=== PATIENT | female | born 1960 | race African-American/Black ===

== ENCOUNTER 2016-08-23 09:37 | Emergency (ER) | payer SELFPAY ==
[2016-08-23 11:01] VITALS: BP 151/88
[2016-08-23] MEDS ORDERED: Aspirin Low Dose CHEW TAB* 81 MG PO ONE (11:40)
[2016-08-23] MEDS ORDERED: Aspirin Low Dose CHEW TAB* 81 MG ONE (11:42)
--- NOTE | 2016-08-23 12:01 | UC ---
Brandy Farley Anna, scribed for Marlen Nixon MD on 08/23/16 at 1125 . Headache HPI - HPI Summary HPI Summary: Patient is a 55 y/o [place] [facility] [place] sudden onset of an excruciating left-sided KEEN that began yesterday morning at 6:00. Patient describes the worst of the pain as crushing with a severity of 10/10, but it is only somewhat present currently. Has has similar h/a x 2, early Jul; and again a couple weeks ago. She is concerned that there could be an underlying serious problem. + fam hx cva (father), mom + dm, htn. nonsmoker. 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 Since last night approx 21:30 sudden onset L ant chest pain, did not go away ( although a little better now), prompting her visit here today. No sob / palpitations. No n/v/d. Appetite decreased today, has not eaten. No recent illness. No rash. No b/b issues. Occas paresth / dysesth in BUE and BLE but not now. No vis / aud changes. Per scribe: At baseline, she experiences numbness in hands and feet. When she has a KEEN, her left ear hurts. She had some abd pain yesterday, which has since resolved. She is sometimes dizzy and unsteady but is not dizzy now. Denies fever, visual changes, smelling changes, rash, recent flu, n/v/d, hematuria, dysuria, or hematochezia. Nothing aggravates symptoms. She was able to work yesterday but not today. She has not been sick lately and is not aware of any blood clotting disorders. She is eating and drinking normally. She has experienced two headaches of this severity before, once three weeks ago, and once five weeks ago. She doesnt smoke. She drinks about one cup of coffee each day. Her family history is significant for CVA. She was tested for carbon monoxide poisoning last year because of exposure in her apartment. She lives in the same apartment building as then. - History Of Current Complaint Chief Complaint: UCHeadache Stated Complaint: LEFT SIDE HEADACHE Time Seen by Provider: 08/23/16 11:14 Hx Obtained From: Patient ?: No Onset/Duration: Sudden Onset, Lasting Days - Allergies/Home Medications Allergies/Adverse Reactions: Allergies Allergy/AdvReac Type Severity Reaction Status Date / Time No Known Allergies Allergy Verified 03/21/15 14:32 Home Medications: Home Medications NK [No Home Medications Reported] 08/23/16 [History Confirmed 08/23/16] PMH/Surg Hx/FS Hx/Imm Hx Previously Healthy: No - see hpi Endocrine History Of: Denies: Diabetes, Thyroid Disease Cardiovascular History Of: Denies: Cardiac Disorders, Hypertension, Congestive Heart Failure Respiratory History Of: Denies: COPD, Asthma GI/ History Of: Denies: Ulcer, Renal Disease - Surgical History Surgical History: Yes Surgery Procedure, Year, and Place: - Family History Known Family History: Positive: Hypertension - mother, Diabetes - mother, Other - Hx CVA in father - Social History Occupation: Employed Full-time Lives: With Family Alcohol Use: Occasionally Substance Use Type: None Smoking Status (MU): Never Smoked Tobacco Review of Systems Constitutional: Negative Skin: Negative Eyes: Negative, Other - see hpi Respiratory: Negative Cardiovascular: Chest Pain Gastrointestinal: Abdominal Pain Genitourinary: Negative Motor: Negative Neurovascular: Negative Musculoskeletal: Negative Neurological: Headache, Numbness, Other - Sometimes dizzy Psychological: Negative All Other Systems Reviewed And Are Negative: Yes Physical Exam Triage Information Reviewed: Yes Appearance: Well-Nourished, Other: - appropriately a little anxious and tearful Vital Signs: Initial Vital Signs Temp 98.4 F 08/23/16 10:56 Pulse 57 08/23/16 10:56 Resp 18 08/23/16 10:56 BP 151/88 08/23/16 10:56 Pulse Ox 100 08/23/16 10:56 Vital Signs Reviewed: Yes Eye Exam: Normal Eyes: Positive: Other: - perrla eomi sw, cp. fundi nondilated grossly benign. no appreciable nystagmus. ENT Exam: Normal Neck exam: Normal - No adenopathy appreciated Respiratory Exam: Normal Respiratory: Positive: Chest non-tender, Lungs clear, Normal breath sounds, No respiratory distress, No accessory muscle use Cardiovascular Exam: Normal Cardiovascular: Positive: RRR, No Murmur, Pulses Normal, Brisk Capillary Refill Abdominal Exam: Normal Abdomen Description: Positive: Nontender, No Organomegaly, Soft Bowel Sounds: Positive: Present Musculoskeletal Exam: Normal Musculoskeletal: Positive: Strength Intact Neurological Exam: Normal - CN 1 - 12 intact, incl + sens alcohol swab. DTR's 2 + equal P / BR / R Moves all ext's. Distal sens LT present x 4 ext's Denies B/ B issues. Gait steady. Psychological Exam: Normal - Conversing easily and appropriately Skin Exam: Normal - no visible or reported rash Diagnostics - EKG Cardiac Rate: Bradycardia - 11:01, Sinus, 54 bpm, no change from previous EKG . Headache Course/Dx - Course Course Of Treatment: No new problems reported in [facility]. Sudden onset L sided h/a since yesterday. L left ant chest pain since last night. Both better now, but still uncomfortable. Neurological examination here in [facility] w/o focal finding. Eyes nondilated fundi grossly ok. EKG sr at 54 bpm qtc 498, t wave nonspecific findings. C/w last ekg 06/15/15. I am unclear of etiology for constellation of syptoms. But c/n exclude cardiac or vascular event, matthew in light of new chest pain. She was tested for CO last year, with low level. Denies new or recent known exposure, left her appartment around 09:30 this morning. D/w pt. ED evaluation and treatment is recommended. She expresses understanding and agreement. Will go via EMS. At first reluctant to take asa, empty stomach, but will take with crackers prior to transfer. Questions answered to the best of my ability. - Differential Dx/Diagnosis Provider Diagnoses: Chest pain. Acute L side H/a. - Physician Notifications Discussed Patient Care With: Dr. Jamison Staton (ED Provider) at 11:45. Agrees to accept pt in the ED. Discharge - Discharge Plan Condition: Guarded Disposition: ADMITTED TO [facility] Referrals: Lukas Bradley MD [Primary Care Provider] - The documentation as recorded by the Brandy sadler Anna accurately reflects the service I personally performed and the decisions made by me, Marlen Nixon MD.
== END 2016-08-23 12:20 | disposition short-term general hospital (02) ==
LOC: UCEAST 09:37
DX: R51 Headache (principal); R07.89 Other chest pain; R00.1 Bradycardia, unspecified
CPT/HCPCS: 93005; 99214; A9270-GY; G0463

== ENCOUNTER 2016-08-23 12:41 | Emergency (ER) | payer SELFPAY ==
--- NOTE | 2016-08-23 13:29 | RAD ---
INDICATION: Headache COMPARISON: None. TECHNIQUE: Contiguous axial sections of the brain were obtained from the skull base to the vertex without contrast. FINDINGS: The ventricles, cisterns and sulci are within normal limits. The vazquez-white matter differentiation is adequately maintained and there is no sulcal effacement. No significant focal abnormality or mass effect is present. There is no evidence for intracranial hemorrhage. No significant focal osseous abnormality is present. The visualized portion of the paranasal sinuses and mastoid air cells appear clear. IMPRESSION: Normal CT of the brain.
[2016-08-23 13:50] LABS: Hematocrit 45 % (35-47); Hemoglobin 13.9 g/dl (12.0-16.0); Mean Corpuscular HGB Conc 31 g/dl (31-36); Mean Corpuscular Hemoglobin 26 pg (27-31); Mean Corpuscular Volume 83 fL (80-97); Mean Platelet Volume 9 um3 (7.4-10.4); Red Blood Count 5.41 10^6/ul (4.0-5.4); Red Cell Distribution Width 13 % (10.5-15); White Blood Count 5.4 10^3/ul (3.5-10.8)
[2016-08-23 13:53] LABS: Comments Flag Yes
[2016-08-23 14:02] LABS: BUN/Creatinine Ratio 20.3 (8-20); Calcium 9.5 mg/dL (8.6-10.3); EGFR African American 105.6 (>60); EGFR Non-African American 82.1 (>60); Total Bilirubin 0.6 mg/dL (0.2-1.0)
[2016-08-23 14:11] LABS: Urine Bilirubin Negative (Negative); Urine Glucose Negative (Negative); Urine Nitrite Negative (Negative)
[2016-08-23] MEDS ORDERED: Ketorolac INJ* 30 MG/ML 1 ML VIAL IV PUSH ONE (14:16)
--- NOTE | 2016-08-23 14:31 | ED ---
I, Oh,Soohyun, scribed for Boo Johnson MD on 08/23/16 at 1310 . Headache - HPI Summary HPI Summary: Limited HPI due to significant language. Pt is communicating freely in [place] with Dr. Johnson. Pt presents to ED for acute left-sided, 6/10 KEEN since yesterday. KEEN is intermittent and lasted about 2 hours yesterday before spontaneously resolving itself. KEEN came back this morning, and pt decided to visit ED. Pt denies any n/v , blurred vision, fever, or chills. Pt states that she has never had this pain before. She denies any PMHx. PSHx includes . She is nondrinker and nonsmoker. FHx is positive for MN and DM. - History Of Current Complaint Stated Complaint: CHEST PAIN Time Seen by Provider: 08/23/16 12:45 Hx Obtained From: Patient Hx Last Menstrual Period: last week Onset/Duration: Sudden Onset, Resolved Initially Headache Was: Moderate Currently Pain Is: Moderate Timing: Intermittent, Lasting:, Hours - 2 hours Character: Dull Location of Headache: Parietal - left Aggravating Factor: Nothing Allevating Factors: Other (Noted In Comments) - spontaneous resolution. Associated Signs And Symptoms: Negative - Allergies/Home Medications Allergies/Adverse Reactions: Allergies Allergy/AdvReac Type Severity Reaction Status Date / Time No Known Allergies Allergy Verified 03/21/15 14:32 PMH/Surg Hx/FS Hx/Imm Hx Endocrine/Hematology History: Reports: Hx Anemia Denies: Hx Diabetes, Hx Thyroid Disease Cardiovascular History: Denies: Hx Congestive Heart Failure, Hx Hypertension Respiratory History: Denies: Hx Asthma, Hx Chronic Obstructive Pulmonary Disease (COPD) GI History: Denies: Hx Ulcer History: Denies: Hx Renal Disease Musculoskeletal History: Denies: Hx Osteoporosis - Surgical History Surgery Procedure, Year, and Place: Hx Anesthesia Reactions: No Infectious Disease History: No Infectious Disease History: Denies: Hx Hepatitis, Hx Human Immunodeficiency Virus (HIV), History Other Infectious Disease, Traveled Outside the [place] in Last 30 Days - Family History Known Family History: Positive: Hypertension - mother, Diabetes - mother, Other - Hx CVA in father - Social History Alcohol Use: Occasionally Hx Substance Use: No Substance Use Type: Reports: None Hx Tobacco Use: No Smoking Status (MU): Never Smoked Tobacco Review of Systems Negative: Fever, Chills Negative: Vomiting, Nausea Positive: Headache - intermittent and left sided, lasting ~2 hours Negative: Anxious, Depressed All Other Systems Reviewed And Are Negative: Yes Physical Exam - Summary Physical Exam Summary: VITAL SIGNS: Reviewed. GENERAL: Patient is a well developed and nourished female who is lying comfortable in the stretcher. Patient is not in any acute respiratory distress. HEAD AND FACE: No signs of trauma. No ecchymosis, hematomas or skull depressions. No sinus tenderness. EYES: PERRLA, EOMI x 2, No injected conjunctiva, no nystagmus. No photophobia. EARS: Hearing grossly intact. Ear canals and tympanic membranes are within normal limits. MOUTH: Oropharynx within normal limits. NECK: Supple, trachea is midline, no adenopathy, no JVD, no carotid bruit, no c- spine tenderness, neck with full ROM. No meningeal signs, no Kernig's or brudzinskis signs. CHEST: Symmetric, no tenderness at palpation LUNGS: Clear to auscultation bilaterally. No wheezing or crackles. CVS: Regular rate and rhythm, S1 and S2 present, no murmurs or gallops appreciated. ABDOMEN: Soft, non-tender. No signs of distention. No rebound no guarding, and no masses palpated. Bowel sounds are normal. EXTREMITIES: FROM in all major joints, no edema, no cyanosis or clubbing. NEURO: Alert and oriented x 3. No acute neurological deficits. Speech is normal and follows commands. SKIN: Dry and warm Triage Information Reviewed: Yes Vital Signs On Initial Exam: Initial Vitals Temp Pulse Resp BP Pulse Ox 98.2 F 63 20 151/95 100 08/23/16 12:50 08/23/16 12:50 08/23/16 12:50 08/23/16 12:50 08/23/16 12:50 Vital Signs Reviewed: Yes Diagnostics - Vital Signs Vital Signs Temp Pulse Resp BP Pulse Ox 08/23/16 12:50 98.2 F 63 20 151/95 100 - Laboratory Result Diagrams: 08/23/16 13:40 08/23/16 13:40 Lab Statement: Any lab studies that have been ordered have been reviewed, and results considered in the medical decision making process. - CT Brain CT Interpretation: No Acute Changes CT Interpretation Completed By: Radiologist Headache Course/Dx - Course Assessment/Plan: Pt presents to ED for acute left-sided headache since yesterday. She reports pain is 6/10. KEEN is intermittent and lasted about 2 hours yesterday before spontaneously resolving itself. KEEN came back this morning , and pt decided to visit ED. Pt denies any n/v, blurred vision, fever, or chills. Pt states that she has never had this pain before. Head CT impression: No acute intracranial pathology. Blood work is found to be wnl. I also added blood work and troponin because she also reported one episode of CP yesterday AM which it was sharp lasted for a few seconds and resolved. Not associated by exertion. She was given Toradol for the pain and her symptoms resolved. She was observed in the ED for a couple hours and her symptoms did not return. I discussed all the findings and test results with the patient. Patient was instructed to return to the emergency room immediately if any of the symptoms return or worsens. Patient understands and agrees. Plan of care was discussed with the patient and patient understands and agrees with the plan of care. All questions were answered at patient satisfaction. There were no further complaints or concerns. Patient is alert and oriented x 3. Patient vital signs are stable. Patient is to follow up with primary care physician in the next 2 to 3 days. Patient understands and agrees. - Diagnoses Differential Diagnosis/HQI/PQRI: Epidural Hematoma, Subdural Hematoma, Migraine , Sinus Headache Provider Diagnoses: Headache, Chest pain Discharge - Discharge Plan Condition: Stable Disposition: HOME Prescriptions: Naproxen TAB* [Naprosyn TAB*] 500 mg PO Q8H PRN #20 tab PRN Reason: Pain Patient Education Materials: General Headache (ED) Referrals: Lukas Bradley MD [Primary Care Provider] - 2 Days The documentation as recorded by the Arturo sadler Soohyun accurately reflects the service I personally performed and the decisions made by me, Boo Johnson MD.
[2016-08-23 15:19] VITALS: BP 153/77
== END 2016-08-23 15:19 | disposition home or self-care (01) ==
LOC: ED 12:41
DX: R51 Headache (principal); R50.9 Fever, unspecified; D64.9 Anemia, unspecified
CPT/HCPCS: 36415; 70450; 80053; 81003; 83605; 84484; 85025; 85610; 96374; 99283; J1885

== ENCOUNTER 2017-03-09 11:57 | Emergency (ER) | payer MEDICAID ==
[2017-03-09 12:02] VITALS: BP 133/95
[2017-03-09] MEDS ORDERED: Bacitracin OINTMENT* 1 TUBE TOPICAL ONE (12:14)
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
== END 2017-03-09 12:24 | disposition home or self-care (01) ==
LOC: ED 11:57
DX: T22.111A Burn of first degree of right forearm, initial encounter (principal); T22.112A Burn of first degree of left forearm, initial encounter; X10.1XXA Contact with hot food, initial encounter; Y93.9 Activity, unspecified; Y92.89 Other specified places as the place of occurrence of the external cause
CPT/HCPCS: 99281

== ENCOUNTER 2017-04-03 09:49 | Emergency (ER) | payer MEDICAID, OTHER ==
[2017-04-03] MEDS ORDERED: Ketorolac INJ* 60 MG/2 ML VIAL IM ONE (11:05)
--- NOTE | 2017-04-03 11:06 | ED ---
Upper Extremity Pain - HPI Summary HPI Summary: Patient presents to the ED with right scapular pain. She denies injury. 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 She states it has been worsening over the past 3 days and only improves slightly with ibuprofen. Denies previous injury to the area. Pain is 8/10, located under the right scapula and is constant with radiation to under the right breast with movement overhead. She states the pain is worse with movement and better with rest and feels as though there is a "ball" under the scapula. Denies other pain , injuries or concern. Denies recent travel, surgery or OCP use. Denies medications or allergies. Otherwise healthy. - History of Current Complaint Hx Obtained From: Patient Hx Last Menstrual Period: last week Mechanism Of Injury: Unknown - overuse Onset/Duration: Started Days Ago Timing: Constant Severity Initially: Moderate Severity Currently: Moderate Pain Location: Arm Character: Aching Aggravating Factor(s): Lifting, Internal/External Rotation, Abduction, Adduction Alleviating Factor(s): Rest Associated Signs & Symptoms: Positive: Negative Related History: Dominant Hand Right - Risk Factors Non-Orthopedic Risk Factor: Negative DVT Risk Factors: Negative Septic Arthritis Risk Factor: Negative Compartment Syndrome Risk Factors: Pain <Lori Pfeiffer - Last Filed: 04/03/17 11:01> <Yana Nascimento - Last Filed: 04/05/17 07:59> - History of Current Complaint Chief Complaint: EDShoulderClavicleInj Stated Complaint: RT SIDE SHARP BACK PAIN Time Seen by Provider: 04/03/17 10:29 - Allergies/Home Medications Allergies/Adverse Reactions: Allergies Allergy/AdvReac Type Severity Reaction Status Date / Time No Known Allergies Allergy Verified 03/09/17 12:02 PMH/Surg Hx/FS Hx/Imm Hx Previously Healthy: Yes Endocrine/Hematology History: Reports: Hx Anemia Denies: Hx Diabetes, Hx Thyroid Disease Cardiovascular History: Denies: Hx Congestive Heart Failure, Hx Hypertension Respiratory History: Denies: Hx Asthma, Hx Chronic Obstructive Pulmonary Disease (COPD) GI History: Denies: Hx Ulcer History: Denies: Hx Renal Disease Musculoskeletal History: Denies: Hx Osteoporosis - Surgical History Surgery Procedure, Year, and Place: Hx Anesthesia Reactions: No Infectious Disease History: No Infectious Disease History: Denies: Hx Hepatitis, Hx Human Immunodeficiency Virus (HIV), History Other Infectious Disease, Traveled Outside the [place] in Last 30 Days - Family History Known Family History: Positive: Hypertension - mother, Diabetes - mother, Other - Hx CVA in father - Social History Occupation: Employed Full-time Lives: With Family Alcohol Use: Occasionally Hx Substance Use: No Substance Use Type: Reports: None Hx Tobacco Use: No Smoking Status (MU): Never Smoked Tobacco <Lori Pfeiffer - Last Filed: 04/03/17 11:01> Review of Systems Constitutional: Negative Eyes: Negative Cardiovascular: Negative Respiratory: Negative Gastrointestinal: Negative Positive: no symptoms reported, see HPI Positive: Arthralgia - right scapularis pain Skin: Negative Neurological: Negative All Other Systems Reviewed And Are Negative: Yes <MargaretteLori - Last Filed: 04/03/17 11:01> Physical Exam Triage Information Reviewed: Yes Vital Signs On Initial Exam: Initial Vitals Temp Pulse Resp BP Pulse Ox 97.1 F 53 20 137/95 100 04/03/17 09:52 04/03/17 09:52 04/03/17 09:52 04/03/17 09:52 04/03/17 09:52 Vital Signs Reviewed: Yes Appearance: Positive: Well-Appearing, Well-Nourished Skin: Positive: Warm, Skin Color Reflects Adequate Perfusion Head/Face: Positive: Normal Head/Face Inspection Eyes: Positive: EOMI, ZAKIA, Conjunctiva Clear Neck: Positive: Supple, Nontender, No Lymphadenopathy Respiratory/Lung Sounds: Positive: Clear to Auscultation, Breath Sounds Present Cardiovascular: Positive: Normal, RRR, Pulses are Symmetrical in both Upper and Lower Extremities Musculoskeletal: Positive: Pain @ - right scapularis Neurological: Positive: Sensory/Motor Intact, Alert, Oriented to Person Place, Time, Speech Normal Psychiatric: Positive: Normal AVPU Assessment: Alert - [place] Coma Scale Best Eye Response: 4 - Spontaneous Best Motor Response: 6 - Obeys Commands Best Verbal Response: 5 - Oriented Coma Scale Total: 15 <Lori Pfieffer Ollie - Last Filed: 04/03/17 11:01> Vital Signs On Initial Exam: Initial Vitals Temp Pulse Resp BP Pulse Ox 97.1 F 53 20 137/95 100 04/03/17 09:52 04/03/17 09:52 04/03/17 09:52 04/03/17 09:52 04/03/17 09:52 <Yana Nascimento - Last Filed: 04/05/17 07:59> Diagnostics - Vital Signs Vital Signs Temp Pulse Resp BP Pulse Ox 04/03/17 10:28 97.1 F 53 20 137/95 100 04/03/17 09:52 97.1 F 53 20 137/95 100 <Lori Pfeiffer - Last Filed: 04/03/17 11:01> - Vital Signs Vital Signs Temp Pulse Resp BP Pulse Ox 04/03/17 11:22 97.2 F 56 20 134/90 04/03/17 10:28 97.1 F 53 20 137/95 100 04/03/17 09:52 97.1 F 53 20 137/95 100 <Yana Nascimento - Last Filed: 04/05/17 07:59> Course/Dx - Course Course Of Treatment: Patient evaluated for muscular pain under the right scapularis likely from overuse injury form work. She denies difficulty breathing. Possibility does include PE, but patient has no risk factors and wells criteria score is 0.0. She overuses the right shoulder at her job and it appears to be inflammatory reaction. She is encouraged ibuprofen, massage therapy, moist heat, flexeril only as needed with precautions given. Patient is given 60mg IM Toradol in ED upon request. Medications were reveiwed with patient. Encouarged to follow up with PCP or return to ED for worsening symptoms. Return precautions given. She will be treated conservatively and encouraged to return if symptoms worsen. Patient understands and agrees with plan. Ok for discharge. - Diagnoses Differential Diagnosis/HQI/PQRI: Positive: Fracture (Open), Fracture (Closed), Strain, Sprain <Lori Pfeiffer - Last Filed: 04/03/17 11:01> <Yana Nascimento - Last Filed: 04/05/17 07:59> - Diagnoses Provider Diagnoses: Overuse injury Discharge <Lori Pfeiffer - Last Filed: 04/03/17 11:01> <Yana Nascimento - Last Filed: 04/05/17 07:59> - Discharge Plan Condition: Stable Disposition: HOME Prescriptions: Cyclobenzaprine TAB* [Flexeril TAB*] 10 mg PO BID PRN #10 tab MDD 2 PRN Reason: Spasms Patient Education Materials: Muscle Spasm (ED) Forms: *Work Release Referrals: Lukas Bradley MD [Primary Care Provider] - Additional Instructions: Follow up with your PCP You may take flexeril only as needed for muscle pain up to twice daily Flexeril: This medication is a muscle relaxant and can help relieve muscle spasms, muscle strain, or pain sensations. Flexeril can cause side effects that may impair your thinking or reactions. Be careful if you drive or do anything that requires you to be awake and alert. Avoid drinking alcohol, which can increase some of the side effects of Flexeril. Ibuprofen 600mg three times daily with meals for discomfort. Return to ED if symptoms worsen or fail to improve, notice worsening swelling, warmth or redness around the joint, develop fever, or pain is uncontrolled with OTC medications. Moist heat to the area for comfort. Warm showers or baths may improve symptoms. It is important to remain mobile as tolerated to prevent stiffening of the joints and delay healing. Follow up with your PCP. If symptoms remain for > 6 weeks, please seek special medical attention from an orthopedic physician. Attestation Statement User Type: Provider - I was available for consult. This patient was seen by the MARTHA. The patient was not presented to, seen by, or examined by me. -Yousuf <Yana Nascimento - Last Filed: 04/05/17 07:59>
[2017-04-03] MEDS ORDERED: Ketorolac INJ* 60 MG/2 ML VIAL ONE ×2 (11:07)
[2017-04-03 11:23] VITALS: BP 134/90
== END 2017-04-03 11:22 | disposition home or self-care (01) ==
LOC: ED 09:49
DX: S49.91XA Unspecified injury of right shoulder and upper arm, initial encounter (principal); X50.9XXA Other and unspecified overexertion or strenuous movements or postures, initial encounter; X50.0XXA Overexertion from strenuous movement or load, initial encounter; Y93.89 Activity, other specified; Y92.89 Other specified places as the place of occurrence of the external cause; Z86.2 Personal history of diseases of the blood and blood-forming organs and certain disorders involving the immune mechanism
CPT/HCPCS: 99282; J1885

== ENCOUNTER 2018-11-02 19:02 | Emergency (ER) | payer BC, OTHER ==
[2018-11-02] MEDS ORDERED: Naproxen TAB* 375 MG PO ONE (19:50)
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
[2018-11-02 21:04] VITALS: BP 152/95
== END 2018-11-02 21:03 | disposition home or self-care (01) ==
LOC: ED 19:02
DX: S16.1XXA Strain of muscle, fascia and tendon at neck level, initial encounter (principal); M25.512 Pain in left shoulder; R07.89 Other chest pain; V43.62XA Car passenger injured in collision with other type car in traffic accident, initial encounter; Y92.410 Unspecified street and highway as the place of occurrence of the external cause
CPT/HCPCS: 72125; 99282; A9270-GY

== ENCOUNTER 2018-12-11 18:26 | Emergency (ER) | payer SELFPAY ==
[2018-12-11 19:10] VITALS: BP 134/77
--- NOTE | 2018-12-11 20:54 | UC ---
Eye Complaint HPI - HPI Summary HPI Summary: 58-year-old female presents with onset of left eye redness, itchiness, burning, and discharge yesterday. States when she woke this morning her eye was crusted shut. Denies fever, chills, URI symptoms, injury, visual disturbances, or photophobia. - History of Current Complaint Chief Complaint: UCEye Stated Complaint: EYE IRRITATION Time Seen by Provider: 12/11/18 20:51 Hx Obtained From: Patient Hx Last Menstrual Period: last week Pain Intensity: 0 - Allergies/Home Medications Allergies/Adverse Reactions: Allergies Allergy/AdvReac Type Severity Reaction Status Date / Time No Known Allergies Allergy Verified 12/11/18 19:10 PMH/Surg Hx/FS Hx/Imm Hx Cardiovascular History: Hypertension - Surgical History Surgical History: None Surgery Procedure, Year, and Place: - Family History Known Family History: Positive: Hypertension - mother, Diabetes - mother, Other - Hx CVA in father - Social History Occupation: Employed Full-time Lives: With Family Alcohol Use: Occasionally Substance Use Type: None Smoking Status (MU): Never Smoked Tobacco Review of Systems All Other Systems Reviewed And Are Negative: Yes Constitutional: Negative: Fever, Chills Skin: Negative: Rash Eyes: Positive: Drainage, Eye Redness. Negative: Blurred Vision, Diplopia, Photophobia ENT: Negative: Sore Throat, Ear Ache, Nasal Discharge, Sinus Congestion, Sinus Pain/Tenderness Respiratory: Negative: Shortness Of Breath, Cough Cardiovascular: Negative: Palpitations, Chest Pain Gastrointestinal: Positive: Negative Genitourinary: Positive: Negative Musculoskeletal: Positive: Negative Neurological: Positive: Negative Is Patient Immunocompromised?: No Physical Exam - Summary Physical Exam Summary: GENERAL APPEARANCE: Well developed, well nourished, alert and cooperative, and appears to be in no acute distress. EYES: Conjunctival erythema and discharge noted to left eye. Right eye normal. PERRL, EOM intact. Vision is grossly intact. EARS: External auditory canals and tympanic membranes clear, hearing grossly intact. NOSE: No nasal discharge. THROAT: Pharynx normal. No tonsilar inflammation, swelling, exudate, or lesions. Uvula midline. Oral cavity normal. Teeth and gingiva in good general condition. NECK: Neck supple, non-tender without lymphadenopathy. CARDIAC: Normal S1 and S2. No S3, S4 or murmurs. Rhythm is regular. There is no peripheral edema, cyanosis or pallor. Extremities are warm and well perfused. Capillary refill is less than 2 seconds. Peripheral pulses intact. LUNGS: Clear to auscultation without rales, rhonchi, wheezing or diminished breath sounds. ABDOMEN: Positive bowel sounds. Soft, nondistended, nontender. No guarding or rebound. No masses or hepatosplenomegally. MUSKULOSKELETAL: ROM intact to all extremities. No joint erythema or tenderness. Normal muscular development. Normal gait. SKIN: Skin normal color, texture and turgor with no lesions or eruptions. Triage Information Reviewed: Yes Vital Signs: Initial Vital Signs Temp 98.1 F 12/11/18 19:05 Pulse 62 12/11/18 19:05 Resp 18 12/11/18 19:05 BP 134/77 12/11/18 19:05 Pulse Ox 100 12/11/18 19:05 Vital Signs Reviewed: Yes Eye Complaint Course/Dx - Course Course Of Treatment: 58-year-old female presents with onset of left eye redness, itchiness, burning, and discharge yesterday. States when she woke this morning her eye was crusted shut. Denies fever, chills, URI symptoms, injury, visual disturbances, or photophobia. Afebrile. Vital signs stable. Exam was remarkable for left conjunctival erythema with purulent discharge. Extraocular eye movements intact , PERRL, and vision grossly intact. Will treat for an acute bacterial conjunctivitis using Polytrim ophthalmic 1 drop 4 times a day 5 days. She is to return here or follow up with her primary care provider in 3 days if symptoms do not improve. Anticipatory guidance and warning symptoms were reviewed with the patient. Verbalizes understanding and agrees with plan of care. - Differential Dx/Diagnosis Differential Diagnosis/HQI/PQRI: Conjunctivitis, Foreign Body Provider Diagnosis: Bacterial conjunctivitis of left eye Discharge - Sign-Out/Discharge Documenting (check all that apply): Patient Departure All imaging exams completed and their final reports reviewed: No Studies - Discharge Plan Condition: Stable Disposition: HOME Patient Education Materials: Conjunctivitis (ED) Referrals: Lukas Bradley MD [Primary Care Provider] - 3 Days (If no improvement.) Additional Instructions: Start Polytrim ophthalmic drops. Instill 1 drop into the affected eye 4 times a day for 5 days. To avoid reinfection or spreading infection: * Use washcloths and towels once then launder. * Do not share washcloths or towels with others. * Change your pillow case each morning until you have finished treatment. * You should throw out any eye makeup, especially mascara, and use a new one once you have finished treatment. Follow up here or with your primary care provider in 3 days if no improvement. Seek immediate medical attention in the emergency room if you develop fever greater than 100.5 F, have pain or swelling of the eye, visual disturbances, loss of vision, or any worsening of symptoms. - Billing Disposition and Condition Condition: STABLE Disposition: Home
[2018-12-11] MEDS ORDERED: Polymyx/Trimethoprim OPTH* 10 ML BTL LEFT EYE ONE (21:00)
== END 2018-12-11 21:14 | disposition home or self-care (01) ==
LOC: UCEAST 18:26
DX: H10.32 Unspecified acute conjunctivitis, left eye (principal); I10 Essential (primary) hypertension
CPT/HCPCS: 99212; G0463

== ENCOUNTER 2019-02-19 11:51 | Emergency (ER) | payer SELFPAY ==
--- NOTE | 2019-02-19 12:05 | ED ---
Hypertension - HPI Summary HPI Summary: This patient is a 58 year old F presenting to [facility] with a chief complaint of HTN since today morning. Pt reports intermittent tension KEEN at the top of head lasting 4-5 days. Pt denies nausea, vomiting, SOB, and CP. Blood pressure in PCP 's office was reportedly as high as 230 systolic so sent to ED. Takes lisinopril and amlodipine, took meds this AM. FHx of HTN. Home Medications Medication Instructions Recorded Confirmed Type Amlodipine Besylate [Norvasc 5 mg 2.5 mg PO DAILY 05/30/18 12/11/18 History tab] Hydrochlorothiazide TAB* 25 mg PO DAILY 05/30/18 12/11/18 History [Hydrodiuril TAB*] Lisinopril TAB* [Prinivil TAB*] 5 mg PO DAILY 05/30/18 12/11/18 History - History of Current Complaint Stated Complaint: HYPERTENSION PER EMS Time Seen by Provider: 02/19/19 11:53 Hx Obtained From: Patient Hx Last Menstrual Period: last week Onset/Duration: Started Hours Ago, Still Present Timing: Constant Reported Blood Pressure Prior To Arrival: 230 systolic Aggravating Factor(s): Nothing Alleviating Factor(s): Nothing Associated Signs & Symptoms: Negative - nausea, vomiting, SOB, and CP, Headaches - Allergies/Home Medications Allergies/Adverse Reactions: Allergies Allergy/AdvReac Type Severity Reaction Status Date / Time No Known Allergies Allergy Verified 12/11/18 19:10 PMH/Surg Hx/FS Hx/Imm Hx Endocrine/Hematology History: Reports: Hx Anemia Denies: Hx Diabetes, Hx Thyroid Disease Cardiovascular History: Reports: Hx Hypertension Denies: Hx Congestive Heart Failure Respiratory History: Denies: Hx Asthma, Hx Chronic Obstructive Pulmonary Disease (COPD) GI History: Denies: Hx Ulcer History: Denies: Hx Renal Disease Musculoskeletal History: Denies: Hx Osteoporosis - Surgical History Surgery Procedure, Year, and Place: Hx Anesthesia Reactions: No Infectious Disease History: Denies: Hx Hepatitis, Hx Human Immunodeficiency Virus (HIV), History Other Infectious Disease - Family History Known Family History: Positive: Hypertension - mother, Diabetes - mother, Other - Hx CVA in father - Social History Alcohol Use: Occasionally Hx Substance Use: No Substance Use Type: Reports: None Hx Tobacco Use: No Smoking Status (MU): Never Smoked Tobacco Review of Systems Negative: Chest Pain Negative: Shortness Of Breath Negative: Vomiting, Nausea Positive: Headache All Other Systems Reviewed And Are Negative: Yes Physical Exam - Summary Physical Exam Summary: Constitutional: Well-developed, Well-nourished, Alert. (-) Distressed Skin: Warm, Dry HENT: Normocephalic; Atraumatic Eyes: Conjunctiva normal Neck: Musculoskeletal ROM normal neck. (-) JVD, (-) Stridor, (-) Tracheal deviation Cardio: Rhythm regular, HR bradycardic, Heart sounds normal; Intact distal pulses; Radial pulses are 2+ and symmetric. (-) Murmur Pulmonary/Chest wall: Effort normal. (-) Respiratory distress, (-) Wheezes, (-) Rales Abd: Soft, (-) tenderness, (-) Distension, (-) Guarding, (-) Rebound Musculoskeletal: (-) Edema Lymph: (-) Cervical adenopathy Neuro: Alert, Oriented x3 Psych: Mood and affect Normal Triage Information Reviewed: Yes Vital Signs On Initial Exam: Initial Vital Signs Temp 96.8 F 02/19/19 12:01 Pulse 57 02/19/19 12:01 Resp 18 02/19/19 12:01 BP 198/98 02/19/19 12:01 Pulse Ox 100 02/19/19 12:01 Vital Signs Reviewed: Yes Diagnostics - Laboratory Result Diagrams: 02/19/19 14:55 Lab Statement: Any lab studies that have been ordered have been reviewed, and results considered in the medical decision making process. - EKG 1253 Summary of EKG Findings: EKG at 1435, sinus bradycardia HR 59 bpm, prolonged QTC at 496, no ischemic changes. 1435 Cardiac Rate: Bradycardia - 59 bpm EKG Rhythm: Sinus Bradycardia Summary of EKG Findings: EKG at 1435 reveals sinus bradycardia, heart rate 59 bpm, prolonged QTC at 496, no ischemic changes. Re-Evaluation - Re-Evaluation First Eval Re-Evaluation Time: 14:24 Comment: K hemolyzed will resend Second Eval Re-Evaluation Time: 16:29 Change: Improved Comment: feeling better, BP dec to 120 systolic. K and Mg normal Hypertension Course/Dx - Course Course Of Treatment: 58 y/o F with hx HTN p/w HTN from clinic. - VS notable for BP 170's systolic, mild headache but declining medicaitns. -Based on my eval today, no evidence of end organ damage from hypertension. -chemistry wnl, no ARCHIE noted, no chest pain/sob, neuro exam non-focal. Recommendations for BP management: -The pt likely suffers from essential hypertension. -In the absence of a hypertensive emergency, which the pt does not have, there is no indication to aggressively treat her elevated blood pressure, even when it approaches the systolic ~180 range. 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 -acutely, the pt may still have an elevated pressure, but over time the medication will take effect. PCP already added captopril 25 mg by mouth and BP 140 here - Diagnoses Differential Diagnosis/HQI PQRI: Hypertension Provider Diagnoses: Hypertension Discharge - Sign-Out/Discharge Documenting (check all that apply): Patient Departure - Discharge Patient Received Moderate/Deep Sedation with Procedure: No - Discharge Plan Condition: Stable Disposition: HOME Patient Education Materials: Hypertension (ED) Referrals: Lukas Bradley MD [Primary Care Provider] - 3 Days Additional Instructions: Follow up with PCP within 3 days. RETURN TO THE EMERGENCY DEPARTMENT FOR CHANGING OR WORSENING SYMPTOMS - Billing Disposition and Condition Condition: STABLE Disposition: Home - Attestation Statements Document Initiated by Scribe: Yes Documenting Scribe: April Dallas Provider For Whom Joanne is Documenting (Include Credential): Dr. Negin Pandya Scribe Attestation: I, April Dallas, scribed for Dr. Negin Pandya on 02/19/19 at 1630. Scribe Documentation Reviewed: Yes Provider Attestation: The documentation as recorded by the April sadler accurately reflects the service I personally performed and the decisions made by me, Dr. Negin Pandya Status of Scribe Document: Viewed
[2019-02-19 14:10] LABS: CO2 Carbon Dioxide 25 mmol/L (22-32); Calcium 9.9 mg/dL (8.6-10.3); Chloride 104 mmol/L (101-111); Sodium 138 mmol/L (135-145)
[2019-02-19 14:13] LABS: Anion Gap 9 mmol/L (2-11)
[2019-02-19 14:16] LABS: BUN/Creatinine Ratio 24.2 (8-20); Blood Urea Nitrogen 16 mg/dL (6-24); EGFR African American 112.1 (>60); EGFR Non-African American 92.6 (>60); Glucose 75 mg/dL (70-100)
[2019-02-19 16:24] VITALS: BP 112/66
[2019-02-19 16:24] LABS: Potassium 3.9 mmol/L (3.5-5.0)
== END 2019-02-19 16:43 | disposition home or self-care (01) ==
LOC: ED 11:51
DX: I10 Essential (primary) hypertension (principal); Z79.899 Other long term (current) drug therapy
CPT/HCPCS: 36415; 80048; 83735; 84132; 93005; 99283